=== PATIENT | male | born 1980 | race Caucasian/White ===

== ENCOUNTER 2019-01-25 11:39 | Inpatient (IN) | payer OTHER ==
--- NOTE | 2019-01-25 15:41 | HP ---
CIWA Score Nausea/Vomitin Muscle Tremors: 2 Anxiety: 2 Agitation: 2 Paroxysmal Sweats: 1-Minimal Palms Moist Orientation: 0-Oriented Tacttile Disturbances: 1-Very Mild Itch/Numbness Auditory Disturbances: 1-Very Mild Visual Disturbances: 0-None Headache: 2-Mild CIWA-Ar Total Score: 13 - Admission Criteria OASAS Guidelines: Admission for Medically Managed Detox: Requires at least one of the followin. CIWA greater than 12 2. Seizures within the past 24 hours 3. Delirium tremens within the past 24 hours 4. Hallucinations within the past 24 hours 5. Acute intervention needed for co occurring medical disorder 6. Acute intervention needed for co occurring psychiatric disorder 7. Severe withdrawal that cannot be handled at a lower level of care (continued vomiting, continued diarrhea, abnormal vital signs) requiring intravenous medication and/or fluids 8. Admission ROS S - HPI Chief Complaint: i need help to stop drinking alcohol and marijuana Allergies/Adverse Reactions: Allergies Allergy/AdvReac Type Severity Reaction Status Date / Time cephalexin [From Keflex] Allergy Severe Rash Verified 01/25/19 13:59 clindamycin Allergy Severe Rash Verified 01/25/19 13:59 History of Present Illness: this 38 years old male with alcohol dependence,seeking detox,withdrawal symptom, multiple admissions in detox,last detox 01/03 but keep relapsing weight loss syncope alcohol related seizure last 2 weeks ago hypertension no med nicotine dependence 1 pack/day,would like the nicotine patch and gum no significant period of sobriety - Ebola screening Have you traveled outside of the country in the last 21 days: No (N) Have you had contact with anyone from an Ebola affected area: No Do you have a fever: No - Review of Systems Constitutional: Loss of Appetite, Malaise, Night Sweats, Changes in sleep, Unintentional Wgt. Loss EENT: reports: Tearing, Nose Congestion Respiratory: reports: No Symptoms reported Cardiac: reports: No Symptoms Reported GI: reports: Diarrhea, Nausea, Vomiting, Indigestion : reports: No Symptoms Reported Musculoskeletal: reports: Back Pain, Muscle Pain Integumentary: reports: Dryness Neuro: reports: Headache, Seizure, Tremors Endocrine: reports: No Symptoms Reported Hematology: reports: No Symptoms Reported Psychiatric: reports: No Sypmtoms Reported, Judgement Intact, Mood/Affect Appropiate, Orientated x3 Other Systems: Reviewed and Negative Patient History - Patient Medical History Hx Anemia: No Hx Asthma: No Hx Chronic Obstructive Pulmonary Disease (COPD): No Hx Cancer: No Hx Hypertension: Yes (no med) Hx Hypercholesterolemia: No Hx Pacemaker: No HX Cerebrovascular Accident: No Hx Seizures: Yes (last 2 weeks ago) Hx Dementia: No Hx Diabetes: No Hx Gastrointestinal Disorders: No Hx Liver Disease: No Hx Genitourinary Disorders: No Hx Sexually Transmitted Disorders: No Hx Renal Disease (ESRD): No Hx Thyroid Disease: No Hx Human Immunodeficiency Virus (HIV): No (last 09/05 negative) Hx Hepatitis C: No Hx Depression: Yes Hx Suicide Attempt: No Hx Bipolar Disorder: No Hx Schizophrenia: No Other Medical History: no suicidal,no homicidal - Patient Surgical History Past Surgical History: No - PPD History Previous Implant?: Yes Documented Results: Negative w/o proof Implanted On Prior [facility] Admission?: No PPD to be Administered?: Yes - Smoking Cessation Smoking history: Current every day smoker Have you smoked in the past 12 months: Yes Aproximately how many cigarettes per day: 20 Cigars Per Day: 0 Hx Chewing Tobacco Use: No Initiated information on smoking cessation: Yes 'Breaking Loose' booklet given: 01/25/19 - Substance & Tx. History Hx Alcohol Use: Yes Hx Substance Use: Yes Substance Use Type: Alcohol, Tranquilizers Hx Substance Use Treatment: Yes (01/03 [facility]) - Substances abused Alcohol Substance route: Oral Frequency: Daily Amount used: 1.5 - 2 pints vodka, 1 bottle beer 12 ozs Age of first use: 16 Date of last use: 01/25/19 Marijuana/Hashish Substance route: Smoking Frequency: 3-6 times per week Amount used: 2 blunts Age of first use: 27 Date of last use: 01/24/19 Family Disease History - Family Disease History Family History: Denies Admission Physical Exam BHS - Vital Signs Vital Signs: Vital Signs - 24 hr 01/25/19 13:56 Temperature 98.4 F Pulse Rate 97 H Respiratory 18 Rate Blood Pressure 171/97 H - Physical General Appearance: Yes: Moderate Distress, Tremorous, Irritable, Sweating, Anxious HEENTM: Yes: Normal ENT Inspection, [place], Pharynx Normal Respiratory: Yes: Lungs Clear, Normal Breath Sounds, No Respiratory Distress Neck: Yes: Within Normal Limits, Supple, Trachea in good position Breast: Yes: Within Normal Limits Cardiology: Yes: Within Normal Limits, Regular Rhythm, Regular Rate, S1, S2 Abdominal: Yes: Within Normal Limits, Normal Bowel Sounds, Non Tender, Flat Genitourinary: Yes: Within Normal Limits Back: Yes: Muscle Spasm Musculoskeletal: Yes: Back pain, Muscle Pain Extremities: Yes: Tremors Neurological: Yes: manager sharepoint II-XII NML intact, Fully Oriented, Alert, Motor Strength 5/5 Integumentary: Yes: Dry, Rash (tinia pedis right) Lymphatic: Yes: Within Normal Limits - Diagnostic (1) Alcohol dependence with uncomplicated withdrawal Current Visit: Yes Status: Acute (2) Alcohol dependence with uncomplicated intoxication Current Visit: Yes Status: Acute (3) Alcohol related seizure Current Visit: Yes Status: Acute (4) Syncope Current Visit: Yes Status: Acute (5) Nicotine dependence Current Visit: Yes Status: Acute (6) Tinea pedis Current Visit: Yes Status: Acute (7) Dehydration Current Visit: Yes Status: Acute Cleared for Admission S - Detox or Rehab [facility] Level of Care: Medically Managed Detox Regimen/Protocol: Librium Inpatient Rehab Admission - Rehab Decision to Admit Inpatient rehab admission?: No
[2019-01-25] MEDS ORDERED: IBUPROFEN 400 MG TABLET (FP) PO PRN (15:52)
[2019-01-25] MEDS ORDERED: MAGNESIUM CITRATE 300 ML BOTTLE PO PRN (15:52)
[2019-01-25] MEDS ORDERED: MENTHOL/PHENOL 1 EACH UD MM PRN (15:52)
[2019-01-25] MEDS ORDERED: chlordiazePOXIDE HCL 25 MG CAPSULE PO PRN (15:52)
[2019-01-25] MEDS ORDERED: MAGNESIUM HYDROX 2400MG/30ML ORAL SUSPENSION 30 ML CUP PO PRN (15:52)
[2019-01-25] MEDS ORDERED: MAG HYDROX/AL HYDROX/SIMETH 30 ML UNIT-DOSE CUP PO PRN (15:52)
[2019-01-25] MEDS ORDERED: METHOCARBAMOL 500 MG TABLET PO PRN (15:52)
[2019-01-25] MEDS ORDERED: ACETAMINOPHEN 325 MG TABLET (FP) PO PRN ×2 (15:52)
[2019-01-25] MEDS: hydrOXYzine PAMOATE 25 MG CAPSULE (FP) PO PRN (17:04)
[2019-01-25] MEDS: NICOTINE 21 MG/24 HOURS TOPICAL PATCH TD SCH (17:04)
[2019-01-25] MEDS ORDERED: cloNIDine HCL 0.1 MG TABLET PO PRN (17:33)
[2019-01-25 18:54] LABS: EPI CELLS 1.4 /HPF (0-5/HPF); HYALINE CASTS 28 /lpf (0-8); PH,URINE 5.5 (5.0-8.0); URINE APPEARANCE CLEAR; URINE BACTERIA 0.8 /hpf (NEGATIVE); URINE BILIRUBIN NEGATIVE (NEGATIVE); URINE COLOR DK YELLOW; URINE GLUCOSE (UA) NEGATIVE (NEGATIVE); URINE KETONE 4+ (NEGATIVE); URINE LEUK ESTERASE NEGATIVE (NEGATIVE); URINE NITRITE NEGATIVE (NEGATIVE); URINE PROTEIN 1+ (NEGATIVE); URINE WBC 1 /hpf (0-5)
[2019-01-25] MEDS: THIAMINE HCL 100 MG TABLET (FP) PO SCH (22:21)
[2019-01-25] MEDS: chlordiazePOXIDE HCL 25 MG CAPSULE PO SCH (22:21)
[2019-01-25] MEDS: TOLNAFTATE 1% CREAM 15 GM TUBE TP SCH (22:21)
[2019-01-25] MEDS: MELATONIN 5 MG TABLETS PO PRN (23:13)
[2019-01-26] MEDS: chlordiazePOXIDE HCL 25 MG CAPSULE PO SCH ×4 (05:59→22:13)
[2019-01-26 10:20] LABS: HEMOGLOBIN 14.2 GM/dL (11.7-16.9); MCHC 33.9 g/dl (32.0-35.9); MEAN CELL VOLUME 94.3 fl (80-96); MEAN PLT VOLUME 8.4 fl (7.5-11.1); PLATELET COUNT 193 K/MM3 (134-434); RBC 4.45 M/mm3 (4.00-5.60); RDW 17.6 % (11.9-15.9); WHITE BLOOD COUNT 5.5 K/mm3 (4.0-10.0)
[2019-01-26] MEDS: NICOTINE 21 MG/24 HOURS TOPICAL PATCH TD SCH (10:27)
[2019-01-26] MEDS: PRENATAL VITAMINS W/ FOLIC ACID TABLET (FP) PO SCH (10:27)
[2019-01-26 10:36] LABS: ALBUMIN 3.5 g/dl (3.4-5.0); BILIRUBIN,TOTAL 1.1 mg/dL (0.2-1); BLOOD UREA NITROGEN 14.7 mg/dL (7-18); CALCIUM 9.6 mg/dL (8.5-10.1); CREATININE 1.3 mg/dL (0.55-1.3); POTASSIUM 3.5 mmol/L (3.5-5.1); TOT PROT 6.3 g/dl (6.4-8.2)
--- NOTE | 2019-01-26 12:33 | PN ---
S CIWA - CIWA Score Nausea/Vomitin Muscle Tremors: 2 Anxiety: 2 Agitation: 2 Paroxysmal Sweats: 1-Minimal Palms Moist Orientation: 0-Oriented Tacttile Disturbances: 1-Very Mild Itch/Numbness Auditory Disturbances: 1-Very Mild Visual Disturbances: 0-None Headache: 2-Mild CIWA-Ar Total Score: 13 BHS Progress Note (SOAP) Subjective: alert,irritable,anxious,tremor,pain in the body and back Objective: 01/26/19 12:30 Vital Signs Temperature 96.9 F L 01/26/19 09:05 Pulse Rate 103 H 01/26/19 09:05 Respiratory Rate 16 01/26/19 09:05 Blood Pressure 147/84 01/26/19 09:05 O2 Sat by Pulse Oximetry (%) Laboratory Last Values WBC 5.5 K/mm3 (4.0-10.0) 01/26/19 07:00 RBC 4.45 M/mm3 (4.00-5.60) 01/26/19 07:00 Hgb 14.2 GM/dL (11.7-16.9) 01/26/19 07:00 Hct 42.0 % (35.4-49) 01/26/19 07:00 MCV 94.3 fl (80-96) 01/26/19 07:00 MCH 32.0 pg (25.7-33.7) 01/26/19 07:00 MCHC 33.9 g/dl (32.0-35.9) 01/26/19 07:00 RDW 17.6 % (11.9-15.9) H 01/26/19 07:00 Plt Count 193 K/MM3 (134-434) 01/26/19 07:00 MPV 8.4 fl (7.5-11.1) 01/26/19 07:00 Sodium 138 mmol/L (136-145) 01/26/19 07:00 Potassium 3.5 mmol/L (3.5-5.1) 01/26/19 07:00 Chloride 98 mmol/L (98-107) 01/26/19 07:00 Carbon Dioxide 31 mmol/L (21-32) 01/26/19 07:00 Anion Gap 10 MMOL/L (8-16) 01/26/19 07:00 BUN 14.7 mg/dL (7-18) 01/26/19 07:00 Creatinine 1.3 mg/dL (0.55-1.3) 01/26/19 07:00 Est GFR (CKD-EPI)AfAm 79.10 01/26/19 07:00 Est GFR (CKD-EPI)NonAf 68.25 01/26/19 07:00 Random Glucose 144 mg/dL (74-106) H 01/26/19 07:00 Calcium 9.6 mg/dL (8.5-10.1) 01/26/19 07:00 Total Bilirubin 1.1 mg/dL (0.2-1) H 01/26/19 07:00 AST 101 U/L (15-37) H 01/26/19 07:00 ALT 67 U/L (13-61) H 01/26/19 07:00 Alkaline Phosphatase 121 U/L (45-117) H 01/26/19 07:00 Total Protein 6.3 g/dl (6.4-8.2) L 01/26/19 07:00 Albumin 3.5 g/dl (3.4-5.0) 01/26/19 07:00 Urine Color Dk yellow 01/25/19 16:35 Urine Appearance Clear 01/25/19 16:35 Urine pH 5.5 (5.0-8.0) 01/25/19 16:35 Ur Specific [place] 1.030 (1.010-1.035) 01/25/19 16:35 Urine Protein 1+ (NEGATIVE) H 01/25/19 16:35 Urine Glucose (UA) Negative (NEGATIVE) 01/25/19 16:35 Urine Ketones 4+ (NEGATIVE) H 01/25/19 16:35 Urine Blood Negative (NEGATIVE) 01/25/19 16:35 Urine Nitrite Negative (NEGATIVE) 01/25/19 16:35 Urine Bilirubin Negative (NEGATIVE) 01/25/19 16:35 Urine Urobilinogen 1.0 mg/dL (0.2-1.0) 01/25/19 16:35 Ur Leukocyte Esterase Negative (NEGATIVE) 01/25/19 16:35 Urine WBC (Auto) 1 /hpf (0-5) 01/25/19 16:35 Urine RBC (Auto) 16.0 /hpf (0-4) 01/25/19 16:35 Urine Casts (Auto) 28 /lpf (0-8) 01/25/19 16:35 U Pathogenic Cast Auto None /lpf (NEGATIVE) 01/25/19 16:35 U Epithel Cells (Auto) 1.4 /HPF (0-5/HPF) 01/25/19 16:35 Urine Bacteria (Auto) 0.8 /hpf (NEGATIVE) 01/25/19 16:35 01/26/19 12:31 initial glucose 144 Assessment: 01/26/19 12:31 withdrawal symptom Plan: continue detox,fasting glucose in am,bgm monitoring
[2019-01-26] MEDS: TOLNAFTATE 1% CREAM 15 GM TUBE TP SCH ×2 (12:53→22:13)
[2019-01-26] MEDS: NICOTINE POLACRILEX 2 MG GUM BUC PRN (14:26)
[2019-01-26] MEDS: BISMUTH SUBSALICYLATE 524 MG/30 ML UD PO PRN (16:55)
--- NOTE | 2019-01-26 16:59 | EKG ---
Test Reason : Blood Pressure : / mmHG Vent. Rate : 088 BPM Atrial Rate : 088 BPM P-R Int : 162 ms QRS Dur : 078 ms QT Int : 368 ms P-R-T Axes : 065 030 033 degrees QTc Int : 445 ms NORMAL SINUS RHYTHM NORMAL ECG NO PREVIOUS ECGS AVAILABLE Confirmed by MD Sam, Ricky ([id number]) on 01/26/2019 4:58:52 PM Referred By: Confirmed By:Ricky Vargas MD
[2019-01-26] MEDS: MELATONIN 5 MG TABLETS PO PRN (22:13)
[2019-01-26] MEDS: THIAMINE HCL 100 MG TABLET (FP) PO SCH (22:13)
[2019-01-27] MEDS: chlordiazePOXIDE HCL 25 MG CAPSULE PO SCH ×3 (05:49→17:24)
[2019-01-27] MEDS: PRENATAL VITAMINS W/ FOLIC ACID TABLET (FP) PO SCH (10:25)
[2019-01-27] MEDS: NICOTINE 21 MG/24 HOURS TOPICAL PATCH TD SCH (10:26)
[2019-01-27] MEDS: TOLNAFTATE 1% CREAM 15 GM TUBE TP SCH (10:26)
[2019-01-27] MEDS: NICOTINE POLACRILEX 2 MG GUM BUC PRN (10:27)
--- NOTE | 2019-01-27 14:56 | PN ---
S CIWA - CIWA Score Nausea/Vomitin-Mild Nausea/No Vomiting Muscle Tremors: 2 Anxiety: 1-Mildly Anxious Agitation: 1-Slight > Activity Paroxysmal Sweats: 1-Minimal Palms Moist Orientation: 0-Oriented Tacttile Disturbances: 0-None Auditory Disturbances: 0-None Visual Disturbances: 0-None Headache: 1-Very Mild CIWA-Ar Total Score: 7 BHS Progress Note (SOAP) Subjective: pt states he is better on alcohol detox protocol, requesting trazodone for sleep O: Vital Signs - 24 hr 01/26/19 01/26/19 01/27/19 18:28 21:48 00:30 Temperature 98.8 F 97.2 F L Pulse Rate 89 84 Respiratory 18 16 18 Rate Blood Pressure 138/63 136/89 01/27/19 01/27/19 01/27/19 03:30 05:57 06:30 Temperature 96.6 F L Pulse Rate 63 Respiratory 18 18 18 Rate Blood Pressure 137/84 01/27/19 01/27/19 09:45 13:36 Temperature 96.6 F L 98.2 F Pulse Rate 70 80 Respiratory 20 20 Rate Blood Pressure 100/66 153/102 H Laboratory Tests 01/25/19 01/26/19 01/26/19 16:35 07:00 07:00 WBC 5.5 RBC 4.45 Hgb 14.2 Hct 42.0 MCV 94.3 MCH 32.0 MCHC 33.9 RDW 17.6 H Plt Count 193 MPV 8.4 Sodium 138 Potassium 3.5 Chloride 98 Carbon Dioxide 31 Anion Gap 10 BUN 14.7 Creatinine 1.3 Est GFR (CKD-EPI)AfAm 79.10 Est GFR (CKD-EPI)NonAf 68.25 POC Glucometer Random Glucose 144 H Calcium 9.6 Total Bilirubin 1.1 H AST 101 H ALT 67 H Alkaline Phosphatase 121 H Total Protein 6.3 L Albumin 3.5 Urine Color Dk yellow Urine Appearance Clear Urine pH 5.5 Ur Specific [place] 1.030 Urine Protein 1+ H Urine Glucose (UA) Negative Urine Ketones 4+ H Urine Blood Negative Urine Nitrite Negative Urine Bilirubin Negative Urine Urobilinogen 1.0 Ur Leukocyte Esterase Negative Urine WBC (Auto) 1 Urine RBC (Auto) 16.0 Urine Casts (Auto) 28 U Pathogenic Cast Auto None U Epithel Cells (Auto) 1.4 Urine Bacteria (Auto) 0.8 RPR Titer 01/26/19 01/26/19 01/27/19 07:00 16:25 05:49 WBC RBC Hgb Hct MCV MCH MCHC RDW Plt Count MPV Sodium Potassium Chloride Carbon Dioxide Anion Gap BUN Creatinine Est GFR (CKD-EPI)AfAm Est GFR (CKD-EPI)NonAf POC Glucometer 144 100 Random Glucose Calcium Total Bilirubin AST ALT Alkaline Phosphatase Total Protein Albumin Urine Color Urine Appearance Urine pH Ur Specific [place] Urine Protein Urine Glucose (UA) Urine Ketones Urine Blood Urine Nitrite Urine Bilirubin Urine Urobilinogen Ur Leukocyte Esterase Urine WBC (Auto) Urine RBC (Auto) Urine Casts (Auto) U Pathogenic Cast Auto U Epithel Cells (Auto) Urine Bacteria (Auto) RPR Titer Nonreactive increased liver enzymes, bilirubin a/p: continue alcohol detox protocol requesting trazodone for sleep- written
[2019-01-27] MEDS: BISMUTH SUBSALICYLATE 524 MG/30 ML UD PO PRN (19:39)
[2019-01-27] MEDS: traZODone HCL 100 MG TABLET (FP) PO SCH (22:21)
[2019-01-27] MEDS: THIAMINE HCL 100 MG TABLET (FP) PO SCH (22:21)
[2019-01-27] MEDS: chlordiazePOXIDE HCL 10 MG CAPSULE PO SCH (22:21)
[2019-01-27] MEDS: KETOCONOZOLE 2% TOPICAL CREAM 15 GM TUBE TP SCH (22:22)
[2019-01-27] MEDS ORDERED: chlordiazePOXIDE HCL 10 MG CAPSULE PO PRN (23:00)
[2019-01-28] MEDS: chlordiazePOXIDE HCL 10 MG CAPSULE PO SCH ×3 (05:32→17:35)
[2019-01-28] MEDS: PRENATAL VITAMINS W/ FOLIC ACID TABLET (FP) PO SCH (10:05)
[2019-01-28] MEDS: KETOCONOZOLE 2% TOPICAL CREAM 15 GM TUBE TP SCH ×2 (10:05→22:15)
[2019-01-28] MEDS: NICOTINE 21 MG/24 HOURS TOPICAL PATCH TD SCH (10:05)
[2019-01-28] MEDS: NICOTINE POLACRILEX 2 MG GUM BUC PRN (10:07)
[2019-01-28] MEDS ORDERED: DOXYCYCLINE HYCLATE 100 MG TABLET PO ONE (12:40)
--- NOTE | 2019-01-28 12:53 | PN ---
S CIWA - CIWA Score Nausea/Vomitin-No Nausea/No Vomiting Muscle Tremors: None Anxiety: 2 Agitation: 1-Slight > Activity Paroxysmal Sweats: 2 Orientation: 0-Oriented Tacttile Disturbances: 3-Moderate Itch/Numb/Burn Auditory Disturbances: 0-None Visual Disturbances: 2-Mild Sensitivity Headache: 0-None Present CIWA-Ar Total Score: 10 BHS Progress Note (SOAP) Subjective: Sweating, Anxious. Objective: PATIENT A & O X 3, OBSERVED AMBULATING ON UNIT UNASSISTED. IN NO ACUTE DISTRESS. 01/28/19 12:47 Vital Signs Temperature 96.7 F L 01/28/19 09:38 Pulse Rate 106 H 01/28/19 09:38 Respiratory Rate 18 01/28/19 09:38 Blood Pressure 136/95 01/28/19 09:38 O2 Sat by Pulse Oximetry (%) Laboratory Tests 01/25/19 01/26/19 01/26/19 16:35 07:00 07:00 WBC 5.5 RBC 4.45 Hgb 14.2 Hct 42.0 MCV 94.3 MCH 32.0 MCHC 33.9 RDW 17.6 H Plt Count 193 MPV 8.4 Sodium 138 Potassium 3.5 Chloride 98 Carbon Dioxide 31 Anion Gap 10 BUN 14.7 Creatinine 1.3 Est GFR (CKD-EPI)AfAm 79.10 Est GFR (CKD-EPI)NonAf 68.25 POC Glucometer Random Glucose 144 H Calcium 9.6 Total Bilirubin 1.1 H AST 101 H ALT 67 H Alkaline Phosphatase 121 H Total Protein 6.3 L Albumin 3.5 Urine Color Dk yellow Urine Appearance Clear Urine pH 5.5 Ur Specific [place] 1.030 Urine Protein 1+ H Urine Glucose (UA) Negative Urine Ketones 4+ H Urine Blood Negative Urine Nitrite Negative Urine Bilirubin Negative Urine Urobilinogen 1.0 Ur Leukocyte Esterase Negative Urine WBC (Auto) 1 Urine RBC (Auto) 16.0 Urine Casts (Auto) 28 U Pathogenic Cast Auto None U Epithel Cells (Auto) 1.4 Urine Bacteria (Auto) 0.8 RPR Titer 01/26/19 01/26/19 01/27/19 07:00 16:25 05:49 WBC RBC Hgb Hct MCV MCH MCHC RDW Plt Count MPV Sodium Potassium Chloride Carbon Dioxide Anion Gap BUN Creatinine Est GFR (CKD-EPI)AfAm Est GFR (CKD-EPI)NonAf POC Glucometer 144 100 Random Glucose Calcium Total Bilirubin AST ALT Alkaline Phosphatase Total Protein Albumin Urine Color Urine Appearance Urine pH Ur Specific [place] Urine Protein Urine Glucose (UA) Urine Ketones Urine Blood Urine Nitrite Urine Bilirubin Urine Urobilinogen Ur Leukocyte Esterase Urine WBC (Auto) Urine RBC (Auto) Urine Casts (Auto) U Pathogenic Cast Auto U Epithel Cells (Auto) Urine Bacteria (Auto) RPR Titer Nonreactive 01/27/19 16:19 WBC RBC Hgb Hct MCV MCH MCHC RDW Plt Count MPV Sodium Potassium Chloride Carbon Dioxide Anion Gap BUN Creatinine Est GFR (CKD-EPI)AfAm Est GFR (CKD-EPI)NonAf POC Glucometer 100 Random Glucose Calcium Total Bilirubin AST ALT Alkaline Phosphatase Total Protein Albumin Urine Color Urine Appearance Urine pH Ur Specific [place] Urine Protein Urine Glucose (UA) Urine Ketones Urine Blood Urine Nitrite Urine Bilirubin Urine Urobilinogen Ur Leukocyte Esterase Urine WBC (Auto) Urine RBC (Auto) Urine Casts (Auto) U Pathogenic Cast Auto U Epithel Cells (Auto) Urine Bacteria (Auto) RPR Titer LABS NOTED. 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 SWELLING AND ERYTHEMA NOTED IN RIGHT TOES AND IN ANTERIOR ASPECT OF RIGHT FOOT. PATIENT REPORTS HISTORY OF "STAPH INFECTION" OF RIGHT FOOT. PATIENT DENIES IVDU IN LEGS OR FEET OR KNOWN HISTORY OF RECENT TRAUMATIC INJURY TO RIGHT FOOT. 01/28/19 12:51 Assessment: 01/28/19 12:47 WITHDRAWAL SYMPTOMS. CELLULITIS OF RIGHT FOOT. ELEVATED LIVER ENZYMES. HYPERBILIRUBINEMIA. Plan: CONTINUE DETOX. DOXYCYCLINE, 100 MG PO BID X 7 DAYS FOR POSSIBLE CELLULITIS OF LEFT FOOT. PATIENT ADVISED TO ELEVATE RIGHT FOOT IN BED MUCH POSSIBLE FOR TIME BEING. CONTINUE TO APPLY KETOCONAZOLE CREAM TO FOOT FOR POSSIBLE TINEA PEDIS. PATIENT ADVISED TO FOLLOW-UP WITH NURSING EXECUTIVE SOON POSSIBLE AFTER DISCHARGE FROM DETOX UNIT FOR FURTHER MEDICAL EVALUATION OF RIGHT FOOT. PATIENT VERBALIZED UNDERSTANDING OF ALL RECOMMENDATIONS.
[2019-01-28] MEDS: DOXYCYCLINE HYCLATE 100 MG TABLET PO SCH (18:38)
[2019-01-28] MEDS: traZODone HCL 100 MG TABLET (FP) PO SCH (22:14)
[2019-01-28] MEDS: THIAMINE HCL 100 MG TABLET (FP) PO SCH (22:14)
[2019-01-28] MEDS ORDERED: chlordiazePOXIDE HCL 10 MG CAPSULE PO SCH (23:00)
[2019-01-29] MEDS: hydrOXYzine PAMOATE 25 MG CAPSULE (FP) PO PRN (01:26)
[2019-01-29] MEDS: NICOTINE 21 MG/24 HOURS TOPICAL PATCH TD SCH (09:31)
[2019-01-29] MEDS: KETOCONOZOLE 2% TOPICAL CREAM 15 GM TUBE TP SCH (09:32)
[2019-01-29] MEDS: DOXYCYCLINE HYCLATE 100 MG TABLET PO SCH (09:32)
[2019-01-29] MEDS: PRENATAL VITAMINS W/ FOLIC ACID TABLET (FP) PO SCH (09:33)
[2019-01-29 10:01] VITALS: BP 140/99; PULSE 89; TEMP 98.1
--- NOTE | 2019-01-29 17:06 | DS ---
[facility] Detox Discharge Summary Admission Date: 01/25/19 Discharge Date: 01/29/19 - History Present History: Alcohol Dependence Additional Comments: PATIENT REPORTS THAT CURRENT WITHDRAWAL / DETOX SYMPTOMS ARE MINIMAL IN DEGREE AND THAT HE FEELS WELL OVERALL AT TIME OF DISCHARGE FROM DETOX UNIT. PATIENT'S FOOT VISUALIZED PRIOR TO HIS DISCHARGE FROM DETOX UNIT. MILD IMPROVEMENT NOTED. TOES OF RIGHT FOOT APPEAR SLIGHTLY LESS ERYTHEMATOUS AND SWOLLEN THAN THEY DID YESTERDAY. PATIENT DENIES PAIN AT SITE, JUST REPORTS THAT TOES FEEL "ITCHY." DISCHARGE PRESCRIPTION FOR ANTIBIOTIC (DOXYCYCLINE) STARTED CELLULITIS OF RIGHT FOOT WHILE PATIENT PATIENT WAS ADMITTED TO DETOX SENT TO PATIENT'S PHARMACY ( [place], [place]) FOR AFTERCARE. PATIENT ADVISED TO VOCATIONAL GUIDANCE COUNSELOR AND COMPLETE FULL COURSE OF ANTIBIOTIC AND TO FOLLOW-UP WITH [facility] DR[facility] HAYNES ([place], [place]) SOON POSSIBLE AFTER DISCHARGE FROM DETOX UNIT FOR FURTHER MEDICAL EVALUATION OF RIGHT FOOT. PATIENT VERBALIZED UNDERSTANDING OF ALL RECOMMENDATIONS PRESENTED TO HIM PRIOR TO DISCHARGE FROM DETOX UNIT. PATIENT GOING TO THE [facility] OUTPATIENT PROGRAM ([place], [place]) FORA AFTERCARE. PATIENT WAS DISCHARGED FROM DETOX UNIT IN STABLE MEDICAL CONDITION. Pertinent Past History: Elevated Liver Enzymes, Cellulitis Of Right Foot, History Of Alcohol-Related Seizure, History Of Syncope, Nicotine Dependence, Tinea Pedis, Dehydration. - Physical Exam Results Vital Signs: Vital Signs Temperature 98.1 F 01/29/19 09:00 Pulse Rate 89 01/29/19 09:00 Respiratory Rate 18 01/29/19 09:00 Blood Pressure 140/99 01/29/19 09:00 O2 Sat by Pulse Oximetry (%) Pertinent Admission Physical Exam Findings: WITHDRAWAL SYMPTOMS. Laboratory Tests 01/25/19 01/26/19 01/26/19 16:35 07:00 07:00 WBC 5.5 RBC 4.45 Hgb 14.2 Hct 42.0 MCV 94.3 MCH 32.0 MCHC 33.9 RDW 17.6 H Plt Count 193 MPV 8.4 Sodium 138 Potassium 3.5 Chloride 98 Carbon Dioxide 31 Anion Gap 10 BUN 14.7 Creatinine 1.3 Est GFR (CKD-EPI)AfAm 79.10 Est GFR (CKD-EPI)NonAf 68.25 POC Glucometer Random Glucose 144 H Calcium 9.6 Total Bilirubin 1.1 H AST 101 H ALT 67 H Alkaline Phosphatase 121 H Total Protein 6.3 L Albumin 3.5 Urine Color Dk yellow Urine Appearance Clear Urine pH 5.5 Ur Specific [place] 1.030 Urine Protein 1+ H Urine Glucose (UA) Negative Urine Ketones 4+ H Urine Blood Negative Urine Nitrite Negative Urine Bilirubin Negative Urine Urobilinogen 1.0 Ur Leukocyte Esterase Negative Urine WBC (Auto) 1 Urine RBC (Auto) 16.0 Urine Casts (Auto) 28 U Pathogenic Cast Auto None U Epithel Cells (Auto) 1.4 Urine Bacteria (Auto) 0.8 RPR Titer 01/26/19 01/26/19 01/27/19 07:00 16:25 05:49 WBC RBC Hgb Hct MCV MCH MCHC RDW Plt Count MPV Sodium Potassium Chloride Carbon Dioxide Anion Gap BUN Creatinine Est GFR (CKD-EPI)AfAm Est GFR (CKD-EPI)NonAf POC Glucometer 144 100 Random Glucose Calcium Total Bilirubin AST ALT Alkaline Phosphatase Total Protein Albumin Urine Color Urine Appearance Urine pH Ur Specific [place] Urine Protein Urine Glucose (UA) Urine Ketones Urine Blood Urine Nitrite Urine Bilirubin Urine Urobilinogen Ur Leukocyte Esterase Urine WBC (Auto) Urine RBC (Auto) Urine Casts (Auto) U Pathogenic Cast Auto U Epithel Cells (Auto) Urine Bacteria (Auto) RPR Titer Nonreactive 01/27/19 01/28/19 16:19 16:47 WBC RBC Hgb Hct MCV MCH MCHC RDW Plt Count MPV Sodium Potassium Chloride Carbon Dioxide Anion Gap BUN Creatinine Est GFR (CKD-EPI)AfAm Est GFR (CKD-EPI)NonAf POC Glucometer 100 92 Random Glucose Calcium Total Bilirubin AST ALT Alkaline Phosphatase Total Protein Albumin Urine Color Urine Appearance Urine pH Ur Specific [place] Urine Protein Urine Glucose (UA) Urine Ketones Urine Blood Urine Nitrite Urine Bilirubin Urine Urobilinogen Ur Leukocyte Esterase Urine WBC (Auto) Urine RBC (Auto) Urine Casts (Auto) U Pathogenic Cast Auto U Epithel Cells (Auto) Urine Bacteria (Auto) RPR Titer LABS NOTED. - Treatment Hospital Course: Detox Protocol Followed, Detoxed Safely, Responded well, Discharged Condition Good Patient has Accepted a Rehab Referral to: PT. GOING TO THE [facility] OP PROGRAM ([place], [place]). - Medication Discharge Medications: Ambulatory Orders Doxycycline Hyclate 100 mg PO BID 7 Days #14 tablet 01/29/19 - Diagnosis (1) Alcohol dependence with uncomplicated intoxication Status: Acute (2) Alcohol dependence with uncomplicated withdrawal Status: Acute (3) Alcohol related seizure Status: Acute (4) Cellulitis of right foot Status: Acute (5) Dehydration Status: Acute (6) Elevated liver enzymes Status: Acute (7) Hyperbilirubinemia Status: Acute (8) Nicotine dependence Status: Acute Qualifiers: Nicotine product type: cigarettes Substance use status: uncomplicated Qualified Code(s): F17.210 - Nicotine dependence, cigarettes, uncomplicated (9) Syncope Status: Acute Qualifiers: Syncope type: unspecified Qualified Code(s): R55 - Syncope and collapse (10) Tinea pedis Status: Acute Qualifiers: Laterality: right Qualified Code(s): B35.3 - Tinea pedis - AMA Did Patient Leave Against Medical Advice: No
== END 2019-01-29 09:36 | disposition home or self-care (01) | DRG 775 ==
LOC: YASAS 11:39 → Y3N 16:20
PROVIDERS: ADMIT Surgery; ATTEND Surgery
PROC: HZ2ZZZZ Detoxification Services for Substance Abuse Treatment (ICD-10-PCS; principal; 2019-01-26)
DX: F10.230 Alcohol dependence with withdrawal, uncomplicated (principal); F10.220 Alcohol dependence with intoxication, uncomplicated; F12.20 Cannabis dependence, uncomplicated; F17.210 Nicotine dependence, cigarettes, uncomplicated; G40.509 Epileptic seizures related to external causes, not intractable, without status epilepticus; L03.115 Cellulitis of right lower limb; I10 Essential (primary) hypertension; B35.3 Tinea pedis; E86.0 Dehydration; E80.6 Other disorders of bilirubin metabolism; R94.5 Abnormal results of liver function studies
CPT/HCPCS: 36415; 80053; 81003; 82962; 85027; 86593; 93005; 93010; J0735